=== PATIENT | female | born 1950 | race Caucasian/White ===

== ENCOUNTER → 2019-09-03 | Outpatient (CLI) | payer MEDICARE, OTHER ==
[~2019-09-03] MED LIST: ATOR10; BENZ100A PO; Bentyl20 MG PO; CARV6.25 PO; CIPR500 PO; CONEST1.25; Cipro500 MG PO; FURO20 PO; Hydrochlorothia25 MG PO; K-Dur20 MEQ PO; LISI5 PO; LOSARTAN POTAS100 MG PO; Medi-Meclizine25 MG PO; NAPR500; OMEP20ER PO; OXYACE5T PO; PROM25 PO; RABE20; Zofran Odt4 MG SL
== END | disposition home or self-care (01) ==
LOC: LAB 14:50 → LAB SHORT 14:50
DX: R10.9 Unspecified abdominal pain (principal)
CPT/HCPCS: 87086

== ENCOUNTER 2022-04-24 08:56 | Day surgery (SDC) | payer MEDICARE ==
[~2022-04-24 08:56] MED LIST changes: +ATOR40TA PO; +Flagyl500 MG PO; +ONDA4ODT SL; +POTA10T PO; +Percocet 5-3251 EACH PO
--- NOTE | 2022-04-24 09:44 | NUR ---
Ambulatory in Day Surgery. Patient states colon prep results clear. History, Chart, Medications and Allergies reviewed before start of procedure.Patient confirms NPO status and agrees with scheduled surgery. Lungs clear T/O to Auscultation. Pre-Op teaching done. Pt verbalizes understanding. Patient States Post-Procedure ride home has been arranged.
--- NOTE | 2022-04-24 10:12 | NUR ---
04/24/22 1012 Berk[facility] Loaiza HISTORY, CHART, MEDICATIONS AND ALLERGIES REVIEWED BEFORE START OF PROCEDURE. PATIENT CONFIRMS NPO STATUS AND AGREES WITH SCHEDULED PROCEDURE. 3-LEAD EKG REVIEWED WITH PHYSICIAN PRIOR TO START OF PROCEDURE. MONITOR INTACT WITH CONTINUOUS PULSE OXIMETRY,CAPNOGRAPHY, 3-LEAD EKG, INTERMITTENT BP. SUPPLEMENTAL O2 TO BE TITRATED THROUGHOUT PROCEDURE TO MAINTAIN O2 SATURATION ABOVE 90%. PATIENT DETERMINED TO BE ASA APPROPRIATE FOR PROPOFOL SEDATION PRIOR TO START OF PROCEDURE BY DR. ARCEO. MALLAMPATI CLASS 2 AIRWAY: COMPLETE VISUALIZATION OF THE UVULA.
--- NOTE | 2022-04-24 11:05 | NUR ---
DISCHARGE SUMMARY PT A&OX4, VSS/RA, CHRIS PO, LEFT FLOOR VIA WC WITH VOLUNTEER TO GO HOME WITH WITH DC PACKET. DC INS PROVIDED. PT REP UNDERSTANDING THOSE INSTRUCTIONS. IV DC'D.
== END 2022-04-24 22:41 | disposition home or self-care (01) ==
LOC: ORSCMMR 08:56 → ORD 10:00 → ORSCMMR 10:00
PROVIDERS: Internal Medicine Gastroenterology
PROC: 0DBL8ZX Excision of Transverse Colon, Via Natural or Artificial Opening Endoscopic, Diagnostic (ICD-10-PCS; principal; 2022-04-24 10:00)
DX: K62.5 Hemorrhage of anus and rectum (principal); D12.3 Benign neoplasm of transverse colon; K57.30 Diverticulosis of large intestine without perforation or abscess without bleeding; E78.00 Pure hypercholesterolemia, unspecified; I42.9 Cardiomyopathy, unspecified; E66.9 Obesity, unspecified; Z68.36 Body mass index [BMI] 36.0-36.9, adult; Z79.899 Other long term (current) drug therapy
CPT/HCPCS: 88305; J2405; J2704; J7120

== ENCOUNTER 2023-03-22 04:59 | Emergency (ER) | payer OTHER ==
[~2023-03-22] VITALS: Ht 154.9 cm; Wt 86.6 kg
[2023-03-22 05:47] LABS: BASOPHILS ABSOLUTE AUTO 0.05 K/mm3 (0.00-0.23); BASOPHILS PERCENT AUTO 1 % (0-2); EOSINOPHILS ABSOLUTE AUTO 0.31 K/mm3 (0.00-0.68); EOSINOPHILS PERCENT AUTO 4 % (0-6); Hematocrit 40.7 % (33.0-51.0); Hemoglobin 13.5 g/dL (11.5-16.0); IMMATURE GRAN ABSOLUTE AUTO 0.03 K/mm3 (0.00-0.10); IMMATURE GRAN PERCENT AUTO 0 % (0-1); LYMPHOCYTES ABSOLUTE AUTO 2.43 K/mm3 (0.84-5.20); LYMPHOCYTES PERCENT AUTO 27 % (21-46); MONOCYTES PERCENT AUTO 6 % (4-13); Mean Corpuscular HGB 28.7 pg (26.0-34.0); Mean Corpuscular HGB Conc 33.2 g/dL (31.5-36.5); Mean Corpuscular Volume 87 fL (80-100); Mean Platelet Volume 11.9 fL (9.1-12.4); NEUTROPHILS ABSOLUTE AUTO 5.59 K/mm3 (1.96-9.15); NEUTROPHILS PERCENT AUTO 63 % (41-73); Platelet Count 224 K/mm3 (150-400); RDW Coefficient Variation 13.8 % (11.7-14.2); RDW Standard Deviation 43.4 fL (35.1-46.3); White Blood Cell Count 8.91 K/mm3 (4.00-11.30)
[2023-03-22 06:05] LABS: Albumin, Blood 3.2 g/dL (3.4-5.0); Albumin/Globulin Ratio 0.9 (0.8-1.8); Bilirubin, Total 0.3 mg/dL (0.1-1.0); Bun/Creatinine Ratio 35.9 (12.0-20.0); Calcium, Blood 9.2 mg/dL (8.5-10.1); Creatinine, Blood 0.67 mg/dL (0.40-1.00); Globulin, Blood 3.6 g/dL (2.2-4.0); Magnesium, Blood 1.6 mg/dL (1.6-2.4); Potassium, Blood 4.1 mmol/L (3.5-5.5); Total Protein, Blood 6.8 g/dL (6.4-8.2)
[2023-03-22 06:12] LABS: Base Excess Venous 1.2 mmol/L; Bicarbonate Venous 25.5 mmol/L (24.0-30.0); PCO2 Venous 38.4 mmHg (38-42); pH Blood Venous 7.43 (7.34-7.37)
[2023-03-22 06:26] LABS: Influenza A, PCR NEGATIVE (NEGATIVE); Influenza B, PCR NEGATIVE (NEGATIVE); Resp Syncytial Virus, PCR NEGATIVE (NEGATIVE); SARS-Cov-2 (COVID-19) PCR, MMC NEGATIVE (NEGATIVE)
[2023-03-22 08:15] VITALS: BP 140/78
== END 2023-03-22 08:24 | disposition home or self-care (01) ==
LOC: ER 04:59
PROVIDERS: Student in an Organized Health Care Education/Training Program
DX: I11.0 Hypertensive heart disease with heart failure (principal); I50.9 Heart failure, unspecified; E78.5 Hyperlipidemia, unspecified; Z88.0 Allergy status to penicillin; Z20.822 Contact with and (suspected) exposure to COVID-19; Z79.899 Other long term (current) drug therapy
CPT/HCPCS: 0241U; 71046; 80053; 82803; 83735; 83880; 84484; 85025; 93005; 93010; J1940; J3475

== ENCOUNTER 2024-05-10 18:50 | Observation (INO) | payer OTHER ==
[~2024-05-10] VITALS: Ht 157.5 cm; Wt 80.0 kg
[2024-05-10 19:56] LABS: BASOPHILS ABSOLUTE AUTO 0.04 K/mm3 (0.00-0.23); BASOPHILS PERCENT AUTO 1 % (0-2); EOSINOPHILS ABSOLUTE AUTO 0.09 K/mm3 (0.00-0.68); EOSINOPHILS PERCENT AUTO 2 % (0-6); Hematocrit 47.2 % (33.0-51.0); Hemoglobin 15.9 g/dL (11.5-16.0); IMMATURE GRAN ABSOLUTE AUTO 0.01 K/mm3 (0.00-0.10); IMMATURE GRAN PERCENT AUTO 0 % (0-1); LYMPHOCYTES ABSOLUTE AUTO 2.45 K/mm3 (0.84-5.20); LYMPHOCYTES PERCENT AUTO 44 % (21-46); MONOCYTES ABSOLUTE AUTO 0.44 K/mm3 (0.16-1.47); MONOCYTES PERCENT AUTO 8 % (4-13); Mean Corpuscular HGB 28.7 pg (26.0-34.0); Mean Corpuscular HGB Conc 33.7 g/dL (31.5-36.5); Mean Corpuscular Volume 85 fL (80-100); NEUTROPHILS ABSOLUTE AUTO 2.58 K/mm3 (1.96-9.15); NEUTROPHILS PERCENT AUTO 46 % (41-73); Platelet Count 264 K/mm3 (150-400); RDW Coefficient Variation 13.7 % (11.7-14.2); Red Blood Cell Count 5.54 M/mm3 (3.80-5.20); White Blood Cell Count 5.61 K/mm3 (4.00-11.30)
[2024-05-10 20:14] LABS: Albumin, Blood 3.7 g/dL (3.4-5.0); Albumin/Globulin Ratio 0.8 (0.8-1.8); Bilirubin, Total 0.5 mg/dL (0.1-1.0); Bun/Creatinine Ratio 19.9 (12.0-20.0); Calcium, Blood 9.1 mg/dL (8.5-10.1); Creatinine, Blood 1.76 mg/dL (0.40-1.00); Globulin, Blood 4.4 g/dL (2.2-4.0); Potassium, Blood 3.2 mmol/L (3.5-5.5); Total Protein, Blood 8.1 g/dL (6.4-8.2)
[2024-05-10] MEDS ORDERED: NS 1,000 ML IV SCH (21:10)
[2024-05-10] MEDS ORDERED: CYCL10 PO (21:53)
[2024-05-10] MEDS ORDERED: MOBIC15 MG PO (21:53)
[2024-05-10] MEDS ORDERED: LOSARTAN POTASS25 M2 PO (21:54)
[2024-05-10] MEDS ORDERED: FUROSEMIDE40 MG PO (21:54)
[2024-05-10] MEDS ORDERED: Potassium Chloride 10 Meq Tablet SA PO ONE (21:55)
[2024-05-10] MEDS ORDERED: Acetaminophen 325 MG TABLET PO PRN (22:15)
[2024-05-10] MEDS ORDERED: Ondansetron HCl 2 MG / ML 2ML Vial IV PRN (22:15)
[2024-05-10] MEDS ORDERED: NS 1,000 ML IV ONE ×2 (22:15→22:59)
[2024-05-10 23:00] LABS: International Normalized Ratio 1.09; Prothrombin Time Results 11.6 Sec (9.7-11.5)
[2024-05-10] MEDS ORDERED: Enoxaparin 30 MG/0.3 ML SYR SC SCH (23:00)
[2024-05-10 23:21] LABS: Influenza A, PCR NEGATIVE (NEGATIVE); Influenza B, PCR NEGATIVE (NEGATIVE); Resp Syncytial Virus, PCR NEGATIVE (NEGATIVE)
[2024-05-11 00:01] LABS: SARS-Cov-2 (COVID-19) PCR, MMC POSITIVE (NEGATIVE)
[2024-05-11 00:56] VITALS: BP 152/89
[2024-05-11 01:11] LABS: Source, Urine Clean Catch
[2024-05-11 01:15] VITALS: BP 141/58
[2024-05-11 01:27] LABS: Bilirubin, Urine Neg (Neg); Blood, Urine 3+ (Neg); Glucose Qualitative, Urine Neg (Neg); Ketones, Urine 1+ (Neg); Leukocyte Esterase, Urine 2+ (Neg); Nitrite, Urine Neg (Neg); Protein, Urine 1+ (Neg); Urobilinogen, Urine NORM (Normal)
[2024-05-11 01:32] LABS: Appearance, Urine Clear (Clear); Color, Urine Yellow (P-Yellow)
[2024-05-11 01:33] LABS: Amorphous Light (0-Heavy); Bacteria Few /hpf; Squamous Epithelial Cells Not Seen /hpf (Few)
--- NOTE | 2024-05-11 04:46 | NUR ---
LATE ENTRY FOR 05/11/24 0130: PATIENT WAS RECIEVED FROM ER VIA STRETCHER. AMBULATED TO BATHROOM WITH ASSIST OF ONE. URINE SAMPLE WAS SENT. PATIENT WAS ORIENTED TO THE ROOM AND CALL REILLY. TELEMETRY WAS PLACED AND BED ALARM IS ON FOR SAFETY. PATIENT IS INSTRUCTED TO CALL FOR ASSIST OOB.
[2024-05-11 04:55] LABS: BASOPHILS ABSOLUTE AUTO 0.03 K/mm3 (0.00-0.23); BASOPHILS PERCENT AUTO 1 % (0-2); EOSINOPHILS ABSOLUTE AUTO 0.08 K/mm3 (0.00-0.68); EOSINOPHILS PERCENT AUTO 2 % (0-6); Hematocrit 41.1 % (33.0-51.0); Hemoglobin 13.7 g/dL (11.5-16.0); IMMATURE GRAN ABSOLUTE AUTO 0.01 K/mm3 (0.00-0.10); IMMATURE GRAN PERCENT AUTO 0 % (0-1); LYMPHOCYTES ABSOLUTE AUTO 2.81 K/mm3 (0.84-5.20); LYMPHOCYTES PERCENT AUTO 52 % (21-46); MONOCYTES ABSOLUTE AUTO 0.41 K/mm3 (0.16-1.47); MONOCYTES PERCENT AUTO 8 % (4-13); Mean Corpuscular HGB 28.8 pg (26.0-34.0); Mean Corpuscular HGB Conc 33.3 g/dL (31.5-36.5); Mean Corpuscular Volume 86 fL (80-100); Mean Platelet Volume 11.2 fL (9.1-12.4); NEUTROPHILS ABSOLUTE AUTO 2.02 K/mm3 (1.96-9.15); NEUTROPHILS PERCENT AUTO 38 % (41-73); Platelet Count 229 K/mm3 (150-400); RDW Coefficient Variation 13.7 % (11.7-14.2); RDW Standard Deviation 43.1 fL (35.1-46.3); Red Blood Cell Count 4.76 M/mm3 (3.80-5.20); White Blood Cell Count 5.36 K/mm3 (4.00-11.30)
[2024-05-11 05:15] LABS: Albumin, Blood 2.9 g/dL (3.4-5.0); Albumin/Globulin Ratio 0.8 (0.8-1.8); Bilirubin, Total 0.3 mg/dL (0.1-1.0); Bun/Creatinine Ratio 27.5 (12.0-20.0); Calcium, Blood 8.3 mg/dL (8.5-10.1); Creatinine, Blood 1.09 mg/dL (0.40-1.00); Globulin, Blood 3.6 g/dL (2.2-4.0); Potassium, Blood 2.9 mmol/L (3.5-5.5); Total Protein, Blood 6.5 g/dL (6.4-8.2)
--- NOTE | 2024-05-11 05:33 | NUR ---
SHIFT SUMMARY: PATIENT HAS SLEPT WELL, VSS, NO REPORTS OF PAIN. MAINTAINING SATS ON RA. ABLE TO TOLERATE A ROAST BEEF SANDWICH AND PUDDING. PATIENT WAS UNABLE TO REMEMBER ALL THE DOSES OF HER MEDICATIONS.
[2024-05-11] MEDS ORDERED: Potassium Chloride 40 MEQ in NS 250 ML IV ONE (06:55)
[2024-05-11 08:19] VITALS: BP 129/67
[2024-05-11] MEDS ORDERED: Carvedilol 6.25 MG Tab PO SCH ×2 (09:00→17:00)
[2024-05-11] MEDS ORDERED: Omeprazole 20 MG CapCR PO SCH (09:00)
[2024-05-11] MEDS ORDERED: NS 250 ML IV PRN (09:20)
[2024-05-11 14:59] VITALS: BP 128/59
--- NOTE | 2024-05-11 17:43 | NUR ---
SUMMARY- PT AAOX4. SBA TO THE BSC. PT ON RA. NO COMPLAINTS OF PAIN. UNABLE TO OBTAIN A STOOL SAMPLE THIS SHIFT, URINE WAS MIXED WITH THE STOOL MULTIPLE TIMES THIS SHIFT.
[2024-05-11 19:50] VITALS: BP 146/64
[2024-05-11 21:43] LABS: Campylobacter Sp Not Detected (NOT DETECT); Plesiomonas Shigelloides Not Detected (NOT DETECT); Salmonella Sp Not Detected (NOT DETECT)
[2024-05-11 21:44] LABS: Adenovirus F 40/41 Not Detected (NOT DETECT); Astrovirus Not Detected (NOT DETECT); Cryptosporidium Not Detected (NOT DETECT); Cyclospora Cayetanensis Not Detected (NOT DETECT); E. Coli O157 Not Detected (NOT DETECT); Entamoeba Histolytica Not Detected (NOT DETECT); Enteroaggregative E. coli-EAEC Not Detected (NOT DETECT); Enteropathogenic E. coli-EPEC Not Detected (NOT DETECT); Enterotoxigenic E. coli-ETEC Not Detected (NOT DETECT); Giardia Lamblia Not Detected (NOT DETECT); Norovirus GI/GII Not Detected (NOT DETECT); Rotavirus A Not Detected (NOT DETECT); Sapovirus Not Detected (NOT DETECT); Shiga Toxin-prod E. coli-STEC Not Detected (NOT DETECT); Shigella/Enteroin E. coli-EIEC Not Detected (NOT DETECT); Vibrio Cholerae Not Detected (NOT DETECT); Vibrio Sp Not Detected (NOT DETECT); Yersinia Enterocolitica Not Detected (NOT DETECT)
[2024-05-12 02:31] VITALS: BP 143/61
[2024-05-12] MEDS ORDERED: Omeprazole 20 MG CapCR PO SCH (06:00)
[2024-05-12 06:01] LABS: Bun/Creatinine Ratio 17.3 (12.0-20.0); Calcium, Blood 8.8 mg/dL (8.5-10.1); Creatinine, Blood 0.75 mg/dL (0.40-1.00); Potassium, Blood 3.9 mmol/L (3.5-5.5)
[2024-05-12 07:17] VITALS: BP 147/64
--- NOTE | 2024-05-12 07:33 | NUR ---
SHIFT SUMMARY: PATIENT HAD NO COMPLAINTS THIS SHIFT. UP TO THE BSC WITH SBA. STOOL SAMPLE WAS NEGATIVE FOR C-DIFF. STOOLS HAVE SLOWED AND PATIENT IS TOLERATING A CLEAR LIQUID DIET WELL.
[2024-05-12] MEDS ORDERED: Enoxaparin 40 MG/0.4 ML SYR SC SCH (09:00)
[2024-05-12] MEDS ORDERED: APHEN325 M1 PO (11:28)
[2024-05-12] MEDS ORDERED: VISBIOME 112.51 EACH PO (11:29)
[2024-05-12] MEDS ORDERED: LOPE2C PO (11:30)
--- NOTE | 2024-05-12 15:54 | NUR ---
1430- PT LEFT IN STABLE CONDITION WITH DAUGHTER AND ALL BELONGINGS.
== END 2024-05-12 14:44 | disposition home or self-care (01) ==
LOC: ER 18:50 → MEDS 18:51 → ENPENDDIS 05-12 11:53 → MEDS 05-12 14:44
PROVIDERS: Emergency Medicine; Family Medicine; ADMIT Internal Medicine
DX: U07.1 COVID-19 (principal); N17.9 Acute kidney failure, unspecified; E87.6 Hypokalemia; I10 Essential (primary) hypertension; E78.5 Hyperlipidemia, unspecified; K21.9 Gastro-esophageal reflux disease without esophagitis; E66.9 Obesity, unspecified; Z68.34 Body mass index [BMI] 34.0-34.9, adult; Z88.0 Allergy status to penicillin; Z79.899 Other long term (current) drug therapy
CPT/HCPCS: 0241U; 36415; 71046; 76770; 80048; 80053; 81001; 83880; 84132; 84145; 84484; 85025; 85610; 87086; 87507; 93005; 93010; 96360; 96361; 96365; 96366; 96372; 99285-25; A9270; G0378; J1650; J3480; J7030; J7050

== ENCOUNTER 2024-09-07 07:50 | Day surgery (SDC) | payer OTHER ==
[2024-09-07] VITALS (12 sets, daily range): BP systolic 137–188; BP diastolic 64–171
[~2024-09-07] VITALS: Ht 157.5 cm; Wt 83.6 kg
[~2024-09-07 07:50] MED LIST changes: +APHEN325 M1 PO; +CYCL10 PO; +FUROSEMIDE40 MG PO; +LOPE2C PO; +LOSARTAN POTASS25 M2 PO; +MOBIC15 MG PO; +VISBIOME 112.51 EACH PO
[2024-09-07] MEDS ORDERED: Aspir 8181 MG PO (08:54)
[2024-09-07] MEDS ORDERED: FURO40 PO (08:55)
[2024-09-07] MEDS ORDERED: Aspirin 325 MG Tab ONE (09:07)
[2024-09-07] MEDS ORDERED: NS 250 ML IV ONE (09:13)
[2024-09-07] MEDS ORDERED: Heparin Sodium 1000 Units/ML 10ML MDV ONE (09:13)
[2024-09-07] MEDS ORDERED: Verapamil HCL 2.5 MG/ML 2ML Injection ONE (09:13)
[2024-09-07] MEDS ORDERED: NS 1,000 ML IV ONE (09:13)
[2024-09-07] MEDS ORDERED: Nitroglycerin 2 MG/20 ML BTL ONE (09:14)
[2024-09-07] MEDS ORDERED: FentaNYL Citrate 50 MCG/ML 2 ML Injection ONE (09:43)
[2024-09-07] MEDS ORDERED: Midazolam HCl 1MG / ML 2ML Vial ONE (09:43)
[2024-09-07] MEDS ORDERED: NS 500 ML IV ONE (09:44)
[2024-09-07] MEDS ORDERED: Clopidogrel Bisulfate 300 MG Cap ONE (11:12)
[2024-09-07] MEDS ORDERED: CLOP75 PO (11:21)
[2024-09-07] MEDS ORDERED: LOSARTAN-HCTZ1 EACH PO (11:22)
[2024-09-07] MEDS ORDERED: PANT20 PO (11:22)
--- NOTE | 2024-09-07 11:43 | NUR ---
INITIAL 2 CC OF AIR REMOVED FROM RIGHT RADIAL TR BAND. SITE C/D/I SOFT/NONTENDER, NO EVIDENCE OF BLEEDING. VSS ON RA. PATIENT SITTING UPRIGHT IN BED CONVERSING APPROPRIATELY. PATIENT TOLERATING PO INTAKE WELL.
--- NOTE | 2024-09-07 12:12 | NUR ---
PATIENT AMBULATING TO RESTROOM WITHOUT DIFFIUCLTY. PATIENT CONVERSING APPROPRIATELY. VSS ON RA. RIGHT RADIAL SITE C/D/I SOFT/NONTENDER, NO EVIDENCE OF BLEEDING
--- NOTE | 2024-09-07 12:14 | NUR ---
PATIENT ARRIVED TO RECOVERY ROOM SITTING UPRIGHT IN BED, CONVERSING APPROPRIATELY. PATIENT DENYING ANY CP. RIGHT RADIAL SITE WWITH TR BAND FULLY INFALTED. SITE C/D/I SOFT/NONTENDER, NO EVIDENCE OF BLEEDING. VSS ON RA
[2024-09-07] MEDS ORDERED: Acetaminophen 325 MG TABLET ONE (12:38)
--- NOTE | 2024-09-07 12:45 | NUR ---
ALL AIR REMOVED FROM RIGHT RADIAL TR BAND. SITE C/D/I SOFT/NONTENDER, NO EVIDENCE OF BLEEDING. VSS ON RA
--- NOTE | 2024-09-07 13:08 | NUR ---
DISCHARGE INSTRUCTIONS REVIEWED [facility] PATIENT AND FAMILY MEMBERS AT BEDSIDE. ALL QUESTIONS WERE ANSWERED.
--- NOTE | 2024-09-07 13:12 | NUR ---
PATIENT AMBULATING TO RESTROOM WITHOUT DIFFIUCLTY
--- NOTE | 2024-09-07 13:21 | NUR ---
PATIENT DISCHARGED HOME AT THIS TIME. R RADIAL TR BAND REMOVED, SITE C/D/I SOFT/NONTENDER, NO EVIDENCE OF BLEEDING. CLOTH DOT AND ARM BOARD IN PLACE. VSS ON RA. PIV REMOVED WITHOUT DIFFICULTY, CATHETER IN PLACE. PATIENT WHEELED TO HOSPITAL ENTRANCE BY DISCHARGE VOLUNTEER. PATIENTS DAUGHTER ABLE TO TRANSPORT PATIENT HOME. ALL PATIENT BELONGINGS AND PAPERWORK LEFT WITH PATIENT
== END 2024-09-07 13:22 | disposition home or self-care (01) ==
LOC: MHTC 07:50
DX: I25.118 Atherosclerotic heart disease of native coronary artery with other forms of angina pectoris (principal); R94.39 Abnormal result of other cardiovascular function study; I44.7 Left bundle-branch block, unspecified; E78.5 Hyperlipidemia, unspecified; E66.9 Obesity, unspecified; I11.0 Hypertensive heart disease with heart failure; I50.20 Unspecified systolic (congestive) heart failure; K21.9 Gastro-esophageal reflux disease without esophagitis; Z68.35 Body mass index [BMI] 35.0-35.9, adult; Z79.899 Other long term (current) drug therapy; Z86.79 Personal history of other diseases of the circulatory system; Z88.0 Allergy status to penicillin; Z91.048 Other nonmedicinal substance allergy status
CPT/HCPCS: 76937; 93458; 99152; A9270; C1769; C1887; C1894; J1644; J2250; J3010; J7030; J7040; J7050; Q9967

== ENCOUNTER 2024-09-11 12:27 | Inpatient (IN) | payer OTHER ==
[~2024-09-11] VITALS: Ht 154.9 cm; Wt 90.1 kg
[~2024-09-11 12:27] MED LIST changes: +Aspir 8181 MG PO; +CLOP75 PO; +FURO40 PO; +LOSARTAN-HCTZ1 EACH PO; +PANT20 PO
[2024-09-11] MEDS ORDERED: NS 1,000 ML IV SCH (12:40)
[2024-09-11 12:43] LABS: Calcium, Ionized (POC) 1.12 mmol/L (1.10-1.46); Chloride (POC) 96 mmol/L (98-108); Creatinine (POC) 1.2 mg/dL (0.6-1.0); Glucose (ISTAT POC) 120 mg/dL (70-99); Hemoglobin (POC) 16.7 g/dL (12.0-16.0); Potassium (POC) 3.7 mmol/L (3.5-5.5); Sodium (POC) 136 mmol/L (135-148); Total CO2 (POC) 29 mmol/L (21-32)
[2024-09-11 12:52] LABS: BASOPHILS ABSOLUTE AUTO 0.07 K/mm3 (0.00-0.23); BASOPHILS PERCENT AUTO 1 % (0-2); EOSINOPHILS ABSOLUTE AUTO 0.28 K/mm3 (0.00-0.68); EOSINOPHILS PERCENT AUTO 3 % (0-6); Hematocrit 45.8 % (33.0-51.0); Hemoglobin 15.7 g/dL (11.5-16.0); IMMATURE GRAN ABSOLUTE AUTO 0.02 K/mm3 (0.00-0.10); IMMATURE GRAN PERCENT AUTO 0 % (0-1); LYMPHOCYTES ABSOLUTE AUTO 4.11 K/mm3 (0.84-5.20); LYMPHOCYTES PERCENT AUTO 47 % (21-46); MONOCYTES ABSOLUTE AUTO 0.57 K/mm3 (0.16-1.47); MONOCYTES PERCENT AUTO 7 % (4-13); Mean Corpuscular HGB 29.6 pg (26.0-34.0); Mean Corpuscular HGB Conc 34.3 g/dL (31.5-36.5); Mean Corpuscular Volume 86 fL (80-100); Mean Platelet Volume 10.9 fL (9.1-12.4); NEUTROPHILS ABSOLUTE AUTO 3.73 K/mm3 (1.96-9.15); NEUTROPHILS PERCENT AUTO 43 % (41-73); Platelet Count 276 K/mm3 (150-400); RDW Coefficient Variation 13.8 % (11.7-14.2); RDW Standard Deviation 43.1 fL (35.1-46.3); Red Blood Cell Count 5.31 M/mm3 (3.80-5.20); White Blood Cell Count 8.78 K/mm3 (4.00-11.30)
[2024-09-11 13:05] LABS: Albumin, Blood 3.6 g/dL (3.4-5.0); Albumin/Globulin Ratio 0.9 (0.8-1.8); Bilirubin, Total 0.4 mg/dL (0.1-1.0); Bun/Creatinine Ratio 15.7 (12.0-20.0); Calcium, Blood 9.5 mg/dL (8.5-10.1); Creatinine, Blood 1.08 mg/dL (0.40-1.00); Globulin, Blood 4.1 g/dL (2.2-4.0); Potassium, Blood 3.8 mmol/L (3.5-5.5); Total Protein, Blood 7.7 g/dL (6.4-8.2)
[2024-09-11] MEDS ORDERED: FLU VACC TS2024-25(6MOS UP)/PF 45 MCG/0.5 ML SYRINGE IM SCH (16:25)
[2024-09-11] MEDS ORDERED: MELO7.5 PO (16:41)
[2024-09-11 16:52] LABS: Free Thyroxine 1.02 ng/dL (0.70-1.60)
[2024-09-11 16:54] LABS: Triiodothyronine, Free 2.69 pg/mL (2.18-3.98)
[2024-09-11] MEDS ORDERED: Cyclobenzaprine HCl 10 MG Tab PO PRN (18:15)
[2024-09-11] MEDS ORDERED: Carvedilol 6.25 MG Tab PO SCH (21:00)
[2024-09-11 23:43] VITALS: BP 136/58
--- NOTE | 2024-09-12 02:35 | NUR ---
SHIFT SUMMARY NEURO: WNL- SOME WEAKNESS IN GAIT. BASELINE NEUROPATHY. CT COMPLETED. CARDIAC: STRIP SAVED OF ECTOPY. NO CP OR SOB BUT PT FEELS ECTOPY BEATS. LUNGS: WNL GI/:WNL
[2024-09-12 04:45] LABS: BASOPHILS ABSOLUTE AUTO 0.07 K/mm3 (0.00-0.23); BASOPHILS PERCENT AUTO 1 % (0-2); EOSINOPHILS ABSOLUTE AUTO 0.25 K/mm3 (0.00-0.68); EOSINOPHILS PERCENT AUTO 3 % (0-6); Hematocrit 41.2 % (33.0-51.0); Hemoglobin 14.5 g/dL (11.5-16.0); IMMATURE GRAN ABSOLUTE AUTO 0.11 K/mm3 (0.00-0.10); IMMATURE GRAN PERCENT AUTO 1 % (0-1); LYMPHOCYTES ABSOLUTE AUTO 3.34 K/mm3 (0.84-5.20); LYMPHOCYTES PERCENT AUTO 37 % (21-46); MONOCYTES ABSOLUTE AUTO 0.72 K/mm3 (0.16-1.47); MONOCYTES PERCENT AUTO 8 % (4-13); Mean Corpuscular HGB 29.7 pg (26.0-34.0); Mean Corpuscular HGB Conc 35.2 g/dL (31.5-36.5); Mean Corpuscular Volume 84 fL (80-100); NEUTROPHILS ABSOLUTE AUTO 4.64 K/mm3 (1.96-9.15); NEUTROPHILS PERCENT AUTO 51 % (41-73); RDW Standard Deviation 42.6 fL (35.1-46.3); Red Blood Cell Count 4.89 M/mm3 (3.80-5.20); White Blood Cell Count 9.13 K/mm3 (4.00-11.30)
[2024-09-12 04:48] LABS: Mean Platelet Volume 11.3 fL (9.1-12.4); Platelet Count 222 K/mm3 (150-400)
[2024-09-12 04:49] VITALS: BP 138/63
[2024-09-12 09:00] VITALS: BP 134/67
[2024-09-12] MEDS ORDERED: Pantoprazole Sodium 20 MG Tab PO SCH (09:00)
[2024-09-12] MEDS ORDERED: Potassium Chloride 10 Meq Tablet SA PO SCH (09:00)
[2024-09-12] MEDS ORDERED: Losartan/HCTZ 50-12.5 TAB PO SCH (09:00)
[2024-09-12] MEDS ORDERED: Enoxaparin 40 MG/0.4 ML SYR SC SCH (09:00)
[2024-09-12] MEDS ORDERED: Atorvastatin 40 MG Tab PO SCH (09:00)
[2024-09-12] MEDS ORDERED: Magnesium Oxide 400 MG Tab PO ONE (09:00)
[2024-09-12] MEDS ORDERED: Furosemide 40 MG Tab PO SCH (09:00)
[2024-09-12] MEDS ORDERED: Aspirin 81 MG TabEC PO SCH (09:00)
[2024-09-12] MEDS ORDERED: Furosemide 20 MG Tab PO SCH (09:00)
[2024-09-12] MEDS ORDERED: Meloxicam 7.5 MG Tab PO SCH (09:00)
[2024-09-12] MEDS ORDERED: Clopidogrel Bisulfate 75 MG Tab PO SCH (09:00)
[2024-09-12] MEDS ORDERED: Acetaminophen 325 MG TABLET PO PRN (11:00)
[2024-09-12 14:16] LABS: Albumin, Blood 3.2 g/dL (3.4-5.0); Bilirubin, Total 0.4 mg/dL (0.1-1.0); Calcium, Blood 8.8 mg/dL (8.5-10.1); Creatinine, Blood 0.96 mg/dL (0.40-1.00); Globulin, Blood 3.3 g/dL (2.2-4.0); Potassium, Blood 3.6 mmol/L (3.5-5.5); Total Protein, Blood 6.5 g/dL (6.4-8.2)
[2024-09-12 15:19] VITALS: BP 119/68
--- NOTE | 2024-09-12 17:57 | NUR ---
PT HAS BEEN RESTING WELL IN BED THROUGH OUT THE DAY. SHE DENIES SOB OR CP. VSS. SHE REMAINS ON ROOM AIR AT THIS TIME. NADN. SHE IS A/O X4. ABLE TO USE CALL LIGHT TO MAKE NEEDS KNOWN. SHE HAS BEEN BETWEEN BED AND BEDSIDE CHAIR T/O THE DAY. PLAN REMAINS FOR POSSIBLE ANGIO ON SATURDAY.
[2024-09-12 20:33] VITALS: BP 123/62
[2024-09-13 00:12] VITALS: BP 112/66
[2024-09-13 03:48] VITALS: BP 135/60
[2024-09-13 04:29] LABS: BASOPHILS ABSOLUTE AUTO 0.06 K/mm3 (0.00-0.23); BASOPHILS PERCENT AUTO 1 % (0-2); EOSINOPHILS ABSOLUTE AUTO 0.28 K/mm3 (0.00-0.68); EOSINOPHILS PERCENT AUTO 4 % (0-6); Hematocrit 39.6 % (33.0-51.0); Hemoglobin 13.3 g/dL (11.5-16.0); IMMATURE GRAN ABSOLUTE AUTO 0.02 K/mm3 (0.00-0.10); IMMATURE GRAN PERCENT AUTO 0 % (0-1); LYMPHOCYTES ABSOLUTE AUTO 2.79 K/mm3 (0.84-5.20); LYMPHOCYTES PERCENT AUTO 42 % (21-46); MONOCYTES ABSOLUTE AUTO 0.56 K/mm3 (0.16-1.47); MONOCYTES PERCENT AUTO 8 % (4-13); Mean Corpuscular HGB 29.4 pg (26.0-34.0); Mean Corpuscular HGB Conc 33.6 g/dL (31.5-36.5); Mean Corpuscular Volume 87 fL (80-100); Mean Platelet Volume 11.2 fL (9.1-12.4); NEUTROPHILS ABSOLUTE AUTO 2.99 K/mm3 (1.96-9.15); NEUTROPHILS PERCENT AUTO 45 % (41-73); Platelet Count 233 K/mm3 (150-400); RDW Coefficient Variation 13.9 % (11.7-14.2); RDW Standard Deviation 44.6 fL (35.1-46.3); Red Blood Cell Count 4.53 M/mm3 (3.80-5.20)
[2024-09-13 04:56] LABS: Albumin, Blood 3.1 g/dL (3.4-5.0); Albumin/Globulin Ratio 0.9 (0.8-1.8); Bilirubin, Total 0.2 mg/dL (0.1-1.0); Bun/Creatinine Ratio 33.6 (12.0-20.0); Creatinine, Blood 0.89 mg/dL (0.40-1.00); Globulin, Blood 3.4 g/dL (2.2-4.0); Potassium, Blood 3.5 mmol/L (3.5-5.5); Total Protein, Blood 6.5 g/dL (6.4-8.2)
--- NOTE | 2024-09-13 06:24 | NUR ---
SHIFT SUMMARY NO ACUTE CHANGES OVERNIGHT. PT SLEPT WELL. NO ECTOPY NOTED.
[2024-09-13 09:27] VITALS: BP 132/54
[2024-09-13 15:58] VITALS: BP 135/70
--- NOTE | 2024-09-13 18:03 | NUR ---
PT HAS BEEN RESTING WELL IN BED AND CHAIR T/O THE DAY. VSS. FAMILY REQUESTS TIME FOR ANGIO IN THE AM THEY HAVE BEEN UPDATED THAT NO TIME IS AVAILABLE FOR TOMORROW'S PROCEDURE AT THIS TIME. SHE DENIES CP OR SOB. NADN. SHE IS A/O X4 ANSWERING QUESTIONS APPROPRIATELY IN FULL SENTENCES. MULTIPLE FAMILY HAVE BEEN IN TO SEE HER TODAY.
[2024-09-13 19:21] VITALS: BP 159/75
[2024-09-13 23:17] VITALS: BP 120/43
[2024-09-14] VITALS (25 sets, daily range): BP systolic 87–144; BP diastolic 44–74
[2024-09-14 04:50] LABS: BASOPHILS ABSOLUTE AUTO 0.05 K/mm3 (0.00-0.23); BASOPHILS PERCENT AUTO 1 % (0-2); EOSINOPHILS ABSOLUTE AUTO 0.36 K/mm3 (0.00-0.68); EOSINOPHILS PERCENT AUTO 5 % (0-6); Hematocrit 40.3 % (33.0-51.0); Hemoglobin 13.6 g/dL (11.5-16.0); IMMATURE GRAN ABSOLUTE AUTO 0.03 K/mm3 (0.00-0.10); IMMATURE GRAN PERCENT AUTO 0 % (0-1); LYMPHOCYTES ABSOLUTE AUTO 3.08 K/mm3 (0.84-5.20); LYMPHOCYTES PERCENT AUTO 40 % (21-46); MONOCYTES ABSOLUTE AUTO 0.71 K/mm3 (0.16-1.47); MONOCYTES PERCENT AUTO 9 % (4-13); Mean Corpuscular HGB 29.4 pg (26.0-34.0); Mean Corpuscular HGB Conc 33.7 g/dL (31.5-36.5); Mean Corpuscular Volume 87 fL (80-100); Mean Platelet Volume 11.1 fL (9.1-12.4); NEUTROPHILS ABSOLUTE AUTO 3.39 K/mm3 (1.96-9.15); NEUTROPHILS PERCENT AUTO 45 % (41-73); Platelet Count 228 K/mm3 (150-400); RDW Coefficient Variation 13.9 % (11.7-14.2); RDW Standard Deviation 44.5 fL (35.1-46.3); Red Blood Cell Count 4.62 M/mm3 (3.80-5.20); White Blood Cell Count 7.62 K/mm3 (4.00-11.30)
--- NOTE | 2024-09-14 05:42 | NUR ---
SHIFT SUMMARY NO ACUTE CHANGES OVERNIGHT. PT WAS NPO AT MIDNIGHT.
[2024-09-14 05:45] LABS: Albumin, Blood 3.1 g/dL (3.4-5.0); Albumin/Globulin Ratio 0.8 (0.8-1.8); Bilirubin, Total 0.4 mg/dL (0.1-1.0); Creatinine, Blood 0.76 mg/dL (0.40-1.00); Globulin, Blood 3.7 g/dL (2.2-4.0); Potassium, Blood 3.4 mmol/L (3.5-5.5); Total Protein, Blood 6.8 g/dL (6.4-8.2)
[2024-09-14] MEDS ORDERED: Pantoprazole Sodium 20 MG Tab PO SCH (06:00)
[2024-09-14] MEDS ORDERED: Potassium Chl 10MEQ/Water100ML 100 ML IV ONE (06:15)
[2024-09-14] MEDS ORDERED: NS 250 ML IV PRN (06:35)
[2024-09-14] MEDS ORDERED: NS 1,000 ML IV ONE ×2 (06:40→07:15)
[2024-09-14] MEDS ORDERED: Heparin Sodium 1000 Units/ML 10ML MDV ONE ×3 (06:40→09:32)
[2024-09-14] MEDS ORDERED: NS 250 ML IV ONE ×2 (06:40→08:34)
[2024-09-14] MEDS ORDERED: Verapamil HCL 2.5 MG/ML 2ML Injection ONE ×2 (06:40→10:08)
[2024-09-14] MEDS ORDERED: Nitroglycerin 2 MG/20 ML BTL ONE (06:41)
[2024-09-14] MEDS ORDERED: FentaNYL Citrate 50 MCG/ML 2 ML Injection ONE ×2 (07:15→09:27)
[2024-09-14] MEDS ORDERED: Midazolam HCl 1MG / ML 2ML Vial ONE ×2 (07:15→09:27)
[2024-09-14] MEDS ORDERED: Phenylephrine HCl 100 MCG/ML-NS 10MLSYR (1MG/10ML) ONE (07:54)
[2024-09-14] MEDS ORDERED: Atropine Sulfate 0.1 MG/ML 10ML SYR ONE (07:55)
[2024-09-14] MEDS ORDERED: Potassium Chloride 20 MEQ TabCR PO ONE (08:00)
[2024-09-14] MEDS ORDERED: Carvedilol 6.25 MG Tab PO SCH (08:00)
[2024-09-14] MEDS ORDERED: Ondansetron HCl 2 MG / ML 2ML Vial ONE ×2 (09:12→10:41)
[2024-09-14] MEDS ORDERED: NS 500 ML IV ONE (09:50)
[2024-09-14] MEDS ORDERED: NS 1,000 ML IV SCH (12:15)
--- NOTE | 2024-09-14 12:18 | NUR ---
PT WAS TAKEN FOR ANGIOGRAM AT THE START OF THIS WRITERS SHIFT. SHE RETURNED BACK TO PCU 07 AT ABOUT 1150. FAMILY IS AT BEDSIDE. THE PT IS DROWSY BUT ORIENTED X4, SHE IS SR W/ FHB AND BBB ON TELE AND EKG; HR 50'S. HER BLOOD PRESSURE IS SOFT W/ Q10 MIN CHECK PER DR. PARMAR'S ORDER. THE PT IS C/O 2/10 CHEST SHARPNESS, BUT STATED IT TO BE TOLERABLE. SHE UNDERSTANDS TO CALL IF THERE IS ANY INCREASE IN PAIN. FAMILY EDUCATED SHREDDER PICKER LIGHT WELL. HER STENT CARD WAS GIVEN TO THE DAUGHTER WHO HAS THE PT'S PURSE AT THIS TIME. NS AT 90ML/HR FOR 12 HRS WAS STARTED. SHE HAS A RIGHT GROIN ACCESS SITE THAT IS W/O HEMATOMA OR BLEEDING. THE PT WILL CONTINUE TO LAY SUPINE UNTIL 1300. ALL PULSES STRONG. SP02 >92% ON RA. THE PT DENIES ANY SOB. SEE NOTES FOR UPDATES.
--- NOTE | 2024-09-14 14:52 | NUR ---
INCREASED OOZING NOTED AT THE PT'S RIGHT GROIN SITE POST ANGIOGRAM. SHE WAS NOT RAISED IN BED PER PROTOCOL AND A SANDBAG WAS PLACED ON THE SITE FOR INCREASED WEIGHT. EDUCATION PROVIDED TO THE PT AND FAMILY. DISCUSSED WITH ANTIQUE FURNITURE RESTORER.
--- NOTE | 2024-09-14 15:34 | NUR ---
SMALL HEMATOMA FORMED IN THE PT'S RIGHT GROIN SITE. MANNUAL PRESSURE HELD FOR 15 MINUTES. A SECOND NURSE, JUNO, LAID EYES ON THE SITE WELL. SEE NOTES FOR UPDATES.
--- NOTE | 2024-09-14 17:16 | NUR ---
SHIFT SUMMARY THE PT REMAINS A&OX4, CALLS APPROPRAITELY, AND MAKES HER NEEDS KNOWN. SHE HAD AN ANGIO THIS MORNING. SEE PREVIOUS NOTES. HER RIGHT GROIN SIGHT HAS STOPPED OOZING AND THE SITE IS AGAIN WITHOUT HEMATOMA. THE DRESSING REMAINS INTACT. SHE IS ON RA W/ SP02 >93%, AND SHE DENIES SOB. ON TELE SHE IS SB 50'S W/ BBB AND FHB. THE PT HAS HAD INTERMINENT 2/10 CHEST SHARPNESS, DR. PARMAR AND DR. NIELSEN AWARE. PAIN IS TOLLERABLE AND DOES RESOLVE ON ITS OWN. THE PT HAS HAD SOFT BLOOD PRESSURES SINCE HER PROCEDURE BUT THEY ARE STABLE. FAMILY HAS BEEN AT THE BEDSIDE AND UPDATED ON CARE. THE STENT CARD WAS GIVEN TO THE DAUGHTER POST ANGIO; THE DAUGHTER HAS THE PT'S PURSE. SEE NOTES FOR UPDATES.
[2024-09-15 04:00] VITALS: BP 101/52
--- NOTE | 2024-09-15 06:43 | NUR ---
PT STABLE THROUGHOUT THE SHIFT. RT GROIN SITE REMAINS STABLE NO NEW S/S BLEEDING/HEMATOMA. PT WAS OOB TO BSC FOR BM AND OOB TO CHAIR FOR 30 MINS THIS SHIFT. PT BP REMAINED SOFT WITH GOOD MAP. NO C/O CP OR SOB. PT REMAINED AOX4. PT WAS SBA/1ASSIST WHEN OOB, STEADY ON FEET. DISTAL CMS REMAINED INTACT. IV FLUID WAS D/C'D AT MIDNIGHT PER ORDER.
[2024-09-15 07:08] LABS: BASOPHILS ABSOLUTE AUTO 0.05 K/mm3 (0.00-0.23); BASOPHILS PERCENT AUTO 1 % (0-2); EOSINOPHILS ABSOLUTE AUTO 0.19 K/mm3 (0.00-0.68); EOSINOPHILS PERCENT AUTO 2 % (0-6); IMMATURE GRAN ABSOLUTE AUTO 0.04 K/mm3 (0.00-0.10); IMMATURE GRAN PERCENT AUTO 0 % (0-1); LYMPHOCYTES ABSOLUTE AUTO 2.53 K/mm3 (0.84-5.20); LYMPHOCYTES PERCENT AUTO 27 % (21-46); MONOCYTES ABSOLUTE AUTO 0.68 K/mm3 (0.16-1.47); MONOCYTES PERCENT AUTO 7 % (4-13); Mean Corpuscular HGB 29.8 pg (26.0-34.0); Mean Corpuscular HGB Conc 33.3 g/dL (31.5-36.5); Mean Corpuscular Volume 89 fL (80-100); Mean Platelet Volume 11.2 fL (9.1-12.4); NEUTROPHILS ABSOLUTE AUTO 5.91 K/mm3 (1.96-9.15); NEUTROPHILS PERCENT AUTO 63 % (41-73); Platelet Count 191 K/mm3 (150-400); RDW Coefficient Variation 14.3 % (11.7-14.2); RDW Standard Deviation 46.1 fL (35.1-46.3); Red Blood Cell Count 3.36 M/mm3 (3.80-5.20)
[2024-09-15 07:30] LABS: Albumin, Blood 2.8 g/dL (3.4-5.0); Albumin/Globulin Ratio 0.9 (0.8-1.8); Bilirubin, Total 0.5 mg/dL (0.1-1.0); Bun/Creatinine Ratio 29.8 (12.0-20.0); Calcium, Blood 8.4 mg/dL (8.5-10.1); Creatinine, Blood 0.7 mg/dL (0.40-1.00); Potassium, Blood 3.9 mmol/L (3.5-5.5); Total Protein, Blood 5.8 g/dL (6.4-8.2)
[2024-09-15 09:32] VITALS: BP 111/48
--- NOTE | 2024-09-15 11:47 | NUR ---
ASSUMED CARE OF PT AT 0700 THIS AM. R FEMORAL ANGIO SITE WNL, MODERATE BRUISING, SOFT, NONTENDER, NO BLEEDING OR HEMATOMA NOTED. DR BACON AT BEDSIDE FOR ROUNDS WITH THIS RN. PLAN IS TO D/C LATER TODAY AFTER RE-CHECK H/H. NO S/SX OF BLEEDING NOTED. PT AND DTR AT BEDSIDE UPDATED AND AGREEABLE WITH PLAN. NO NEEDS IDENTIFIED AT THIS TIME. CALL LIGHT IN REACH. WILL CONTINUE TO MONTIOR.
--- NOTE | 2024-09-15 12:08 | NUR ---
Upon receiving a referral for spiritual care, I visited the patient. The patient is very pleasant and speaks positively about her family, the medical staff and her Physician team. She shares about her family dynamics, her membership at the [employer] and the amazing support and love she feels. I provided therapeutic listening and prayer. PAtient responded well and showed signs of being encouraged in her joselyn.
[2024-09-15 12:23] VITALS: BP 122/46
[2024-09-15 13:09] LABS: Hematocrit 31.2 % (33.0-51.0); Hemoglobin 10.4 g/dL (11.5-16.0)
[2024-09-15 15:39] VITALS: BP 117/47
--- NOTE | 2024-09-15 16:03 | NUR ---
NO ACUTE EVENTS SINCE LAST NOTE. PT DISCHARGED HOME IN THE CARE OF HER DTR AT APROX 1550, ALL BELONGINGS SENT HOME WITH PT. IV REMOVED, WNL. DISCHARGE TEACHING REVIEWED WITH PT AND HER DTR AT BEDSIDE INCLUDING: FOLLOW UP APPOINTMENTS, MEDICATION LIST, MEDICATION CHANGES, GROIN SITE CARE AND EDUCATION. PT AND DTR VERBALIZE UNDERSTANDING AND HAVE NO QUESTIONS OR CONCERNS AT TIME OF DISCHARGE. NO FURTHER DISCHARGE NEEDS IDENTIFIED. PT AMBULATORY, GAIT STEADY.
[2024-09-16] MEDS ORDERED: Losartan Potassium 25 MG Tab PO SCH (09:00)
== END 2024-09-15 16:14 | disposition home or self-care (01) | DRG 322 ==
LOC: ER 12:27 → ERHOLD 12:28 → PCU 12:28
PROVIDERS: Emergency Medicine; ADMIT Hospitalist
PROC: 0271366 Dilation of Coronary Artery, Two Arteries, Bifurcation, with Three Drug-eluting Intraluminal Devices, Percutaneous Approach (ICD-10-PCS; principal; 2024-09-14)
PROC: B2111ZZ Fluoroscopy of Multiple Coronary Arteries using Low Osmolar Contrast (ICD-10-PCS; 2024-09-14)
PROC: 4A023N7 Measurement of Cardiac Sampling and Pressure, Left Heart, Percutaneous Approach (ICD-10-PCS; 2024-09-14)
PROC: B241ZZ3 Ultrasonography of Multiple Coronary Arteries, Intravascular (ICD-10-PCS; 2024-09-14)
DX: I25.119 Atherosclerotic heart disease of native coronary artery with unspecified angina pectoris (principal); I50.42 Chronic combined systolic (congestive) and diastolic (congestive) heart failure; I11.0 Hypertensive heart disease with heart failure; K21.9 Gastro-esophageal reflux disease without esophagitis; I44.0 Atrioventricular block, first degree; E03.8 Other specified hypothyroidism; E66.9 Obesity, unspecified; I42.9 Cardiomyopathy, unspecified; R55 Syncope and collapse; E78.5 Hyperlipidemia, unspecified; Z88.0 Allergy status to penicillin; Z91.048 Other nonmedicinal substance allergy status; Z79.82 Long term (current) use of aspirin; Z79.899 Other long term (current) drug therapy; Z79.02 Long term (current) use of antithrombotics/antiplatelets; Z87.19 Personal history of other diseases of the digestive system
CPT/HCPCS: 36415; 70450; 71045; 76937; 80047; 80053; 83735; 83880; 84439; 84443; 84481; 84484; 85014; 85018; 85025; 85347; 92978; 92979; 93005; 93010; 93454; 96360; 96361; 96372; 99152; 99153; 99285-25; A9270; C1725; C1753; C1760; C1769; C1874; C1887; C1894; C9600; C9601; G0378; J0461; J1644; J1650; J2250; J2371; J2405; J2470; J3010; J3480; J7030; J7040; J7050; Q9967